=== PATIENT | female | born 1955 | race Caucasian/White ===

== ENCOUNTER 2017-03-18 10:31 | Outpatient (CLI) | payer BC ==
--- NOTE | 2017-03-18 14:22 | Ultrasound Report ---
LEFT BREAST ULTRASOUND: 03/18/2017 CLINICAL INDICATION: Swelling below the left TRAM flap reconstruction. TECHNIQUE: Real-time scanning was performed with litigation claim representative static images obtained. FINDINGS: Ultrasound of the palpable abnormalities identified by the patient was performed. At thes e sites, unremarkable subcutaneous fat is seen. No discrete solid or cystic mass is identified. IMPRESSION: NEGATIVE EXAMINATION. RECOMMENDATION: Routine annual screening unless otherwise clinically indicated. BI-RADS category 1, negative. JOB #: [id number] EXT JOB #:[id number]
--- NOTE | 2017-03-18 14:22 | Ultrasound Report ---
RIGHT BREAST ULTRASOUND: 03/18/2017 CLINICAL INDICATION: Palpable abnormalities, pain. TECHNIQUE: Real-time scanning was performed with teleservices representative static images obtained. FINDINGS: Ultrasound of the regions of palpable abnormality and pain identified by the patient was p erformed. Unremarkable parenchymal lobules are seen. No discrete solid or cystic lesion is identifi ed. No sonographically suspicious findings are appreciated. IMPRESSION: NEGATIVE EXAMINATION. RECOMMENDATION: Routine annual screening unless otherwise clinically indicated. BI-RADS category 1, negative. JOB #: [id number] EXT JOB #:[id number]
--- NOTE | 2017-03-18 18:12 | Mammography Report ---
DIGITAL BILATERAL DIAGNOSTIC MAMMOGRAM: 03/18/2017 CLINICAL INDICATION: Bulging below left TRAM flap reconstruction, palpable abnormalities and pain ri ght breast. TECHNIQUE: Bilateral CC, MLO, true lateral views. Markers were placed at the sites of palpable abno rmalities and pain in the right breast. COMPARISON: Outside films dated 07/24/2014, 08/08/2013, 07/23/2011. The right breast demonstrates heterogeneously dense fibroglandular parenchyma. A TRAM flap reconstru ction is noted on the left side. Coarse and punctate, typically benign calcifications are present. No mammographic abnormalities are appreciated at the sites of palpable abnormalities and pain identif ied in the right breast by the markers. No abnormal mammographic density is appreciated in the left TRAM flap reconstruction. Please also refer to bilateral breast ultrasound. IMPRESSION: BENIGN FINDINGS. RECOMMENDATION: ROUTINE ANNUAL SCREENING UNLESS OTHERWISE CLINICALLY INDICATED. BIRADS CATEGORY: 2, BENIGN FINDINGS. STANDARD QUALIFYING STATEMENTS 1. This examination was reviewed with the aid of Computed-Aided Detection (CAD). 2. A negative or benign imaging report should not delay biopsy if clinically suspicious findings are present. Consider surgical consultation if warranted. More than 5% of cancers are not identified b y imaging. 3. Dense breasts may obscure an underlying neoplasm. JOB #: [id number] EXT JOB #:[id number]
== END 2017-03-18 10:32 | disposition home or self-care (01) ==
LOC: DI 10:31
PROVIDERS: ATTEND Physician Assistant Medical
DX: N63 Unspecified lump in breast (principal); N64.4 Mastodynia; N65.0 Deformity of reconstructed breast; Z85.3 Personal history of malignant neoplasm of breast
CPT/HCPCS: 76642; 77066

== ENCOUNTER 2017-07-13 13:32 | Outpatient (CLI) | payer MEDICARE ==
[2017-07-13 20:40] LABS: CREATININE 0.7 mg/dL (0.4-1.0)
== END 2017-07-13 13:33 ==
LOC: LAB.WCP 13:32
PROVIDERS: ATTEND Physician Assistant Medical
DX: Z51.81 Encounter for therapeutic drug level monitoring (principal)
CPT/HCPCS: 36415; 82565

== ENCOUNTER 2017-07-27 09:56 | Outpatient (CLI) | payer MEDICARE ==
[2017-07-27] MEDS ORDERED: GADOBUTROL 7.5 MMOL/7.5 ML VIAL ONE (10:05)
[2017-07-27] MEDS ORDERED: GADOBUTROL 7.5 MMOL/7.5 ML VIAL IVP ONE (10:49)
--- NOTE | 2017-07-28 19:07 | MRI Report ---
MRI BILATERAL BREASTS WITH AND WITHOUT CONTRAST: 07/27/2017 CLINICAL INDICATION: A 62-year-old with personal history of left breast cancer status post mastectomy and TRAM flap reconstruction, persistent palpable abnormality in the lateral aspect of the right breast on clinical examination, negative mammogram and ultrasound March 2017. TECHNIQUE: Using a dedicated breast coil, axial precontrast STIR, T1, dynamic postcontrast axial 3-D images, axial 3-D high resolution images, and postcontrast diffusion weighted images were obtained. Gadavist 6 mL was administered intravenously. Post-processing with dynamic contrast enhancement analysis and multiplanar reformations was performed with Rockpack. FINDINGS RIGHT: The right breast demonstrates minimal fibroglandular parenchyma, with no significant enhancement. No focal mass or abnormal enhancement is appreciated. No axillary adenopathy is appreciated. LEFT: The appearance of the left TRAM flap reconstruction is unremarkable. There is no evidence of abnormal enhancement or mass lesion. No left axillary adenopathy is appreciated. IMPRESSION: Negative examination. Specifically, no MRI abnormality in the lateral right breast, at the site of clinical concern. RECOMMENDATION: Routine annual screening, next due in March 2018, unless otherwise clinically indicated. BIRADS category 1 - Negative. The patient has been instructed to obtain results from Dr. Gomez in 5 business days. COMMENT: Breast MRI is a highly sensitive examination, and has a cancer detection threshold down to approximately 5 mm; however, it only has moderate specificity. Although breast MRI has a high negative predictive value, appropriate clinical and mammographic followup are always necessary. MRI may miss less angiogenic tumor; therefore, it should not be used to avoid a biopsy which is otherwise clinically indicated. Normal-appearing lymph nodes may contain microscopic tumor. Due to prone positioning, the described location of findings may differ from other modalities. TD: 07/27/2017 20:29 J CARLOS
== END 2017-07-27 09:57 | disposition home or self-care (01) ==
LOC: DI 09:56
PROVIDERS: ATTEND Physician Assistant Medical
DX: N63.10 Unspecified lump in the right breast, unspecified quadrant (principal); Z85.3 Personal history of malignant neoplasm of breast
CPT/HCPCS: A9585; C8908; 77059

== ENCOUNTER 2017-10-13 11:53 | Outpatient (CLI) | payer MEDICARE ==
[~2017-10-13 11:53] MED LIST: GADOBUTROL 7.5 MMOL/7.5 ML VIAL ONE
[2017-10-13 12:24] LABS: CREATININE 0.8 mg/dL (0.4-1.0)
[2017-10-13] MEDS ORDERED: GADOBUTROL 7.5 MMOL/7.5 ML VIAL IVP ONE (13:20)
--- NOTE | 2017-10-13 18:51 | MRI Report ---
EXAM: MRI LUMBAR SPINE WITHOUT AND WITH CONTRAST EXAM DATE: 10/13/2017 01:26 PM. CLINICAL HISTORY: Lumbar spine pain, LBP, right lower extremity weak. COMPARISONS: None. TECHNIQUE: Multiplanar, multisequence T1-weighted and fluid-sensitive sequences of the lumbar spine f rom T12 to S1 before and after administration of intravenous contrast. Other: None. IV contrast: 6 mL Gadavist. FINDINGS: Spinal Cord: The conus terminates at L1. The conus medullaris and cauda equina are unremarkable. Alignment: 1. Mild 9 degree leftward convex curvature of the lumbar spine centered at L2. 2. Left lateral subluxation 6 mm L2 on L3. 3. Anterolisthesis 4 mm L5 on S1. 4. Anterolisthesis 5 mm L3 on L4. 5. Anterolisthesis 4 mm L2 on L3. Bone Marrow: Five [id number] lumbar vertebral bodies are assumed. Bilateral L4 and bilateral L5 pedicle fixation screws with posterior fixation hardware. Disk Levels/Facets: T12-L1: Unremarkable. L1-L2: Unremarkable. L2-L3: Severe disk degeneration. Severe right facet joint arthrosis. Central AP thecal sac diameter i s 5 mm. Diffuse moderate disk bulge. Mild left foraminal stenosis from disk bulge and facet hypertrop hy. Moderate right foraminal stenosis from disk degeneration, foraminal disk bulge and facet degenera tive hypertrophy. L3-L4: Central AP thecal sac diameter is 5 mm. Apophyseal joint apposition. Severe facet joint arthro sis. Ligamentum flavum thickening. Moderate left and mild right lateral recess stenosis from facet hy pertrophy. Diffuse disk bulge. Mild right foraminal stenosis. Moderate left foraminal stenosis and ef facement of the exiting left L3 nerve root from left lateral 5 mm disk extrusion. L4-L5: Interbody fusion with spacers. Negative for spinal canal stenosis or foraminal stenosis. Wide laminectomy defect. L5-S1: Severe facet joint arthrosis. Negative for foraminal stenosis. Negative for central spinal can al stenosis. Spinal Canal: No enhancing masses within the spinal canal. No epidural abscess. Musculature: Sacrum posterior paraspinal muscle atrophy. Other: The visualized retroperitoneum is unremarkable. IMPRESSION: 1. Anterior fusion, posterior fusion and wide laminectomy defect L4-L5. 2. Moderate central spinal canal stenosis, moderate left lateral recess stenosis and mild right later al recess stenosis L3-L4 from facet degenerative hypertrophy, ligamentum flavum thickening, 5 mm ante rolisthesis and posterior broad 3 mm disk protrusion. 3. Moderate to severe left L3-L4 foraminal stenosis from facet hypertrophy and far left lateral 5 mm disk extrusion with effacement exiting left L3 nerve root. 4. Moderate central spinal canal stenosis L2-L3 interspace from 4 mm anterolisthesis L2 on L3, diffus e disk bulge and severe right facet arthrosis. 5. Moderate right L2-L3 foraminal stenosis from foraminal disk bulge and facet degenerative hypertrop hy. Comment: The following findings are so common in adults without low back pain that while we report th eir presence, they must be interpreted with caution and in the context of the clinical situation. (Re jh Abraham et al, Spine 2001) Prevalence of findings in patients without low back pain: Disk degeneration (any evidence): 92% Disk desiccation/T2 signal loss: 83% Disk height loss: 56% Disk bulge: 64% Disk protrusion: 32% Annular tear/high intensity zone: 38% [facility] Referring Provider Line: [phone] SITE ID: [id number]
== END 2017-10-13 11:54 | disposition home or self-care (01) ==
LOC: LAB 11:53
PROVIDERS: ATTEND Orthopaedic Surgery
DX: M51.36 Other intervertebral disc degeneration, lumbar region (principal); M51.26 Other intervertebral disc displacement, lumbar region; M43.16 Spondylolisthesis, lumbar region
CPT/HCPCS: 36415; 72158; 82565; 84520; A9585

== ENCOUNTER 2017-10-20 13:30 | Outpatient (CLI) | payer MEDICARE, BC | END 2017-10-20 13:31 | disposition home or self-care (01) | LOC: LAB.WCP 13:30 | PROVIDERS: ATTEND Family Medicine | DX: N10 Acute pyelonephritis (principal) | CPT/HCPCS: 87086 ==

== ENCOUNTER 2017-11-09 08:00 | Outpatient (CLI) | payer BC, MEDICARE | END 2017-11-09 08:01 | disposition home or self-care (01) | LOC: LAB.R 08:00 | PROVIDERS: ATTEND Family Medicine | DX: Z79.891 Long term (current) use of opiate analgesic (principal) | CPT/HCPCS: 80307; 81599; G0480; 80346 ==

== ENCOUNTER 2018-06-11 10:45 | Outpatient (CLI) | payer MEDICARE ==
--- NOTE | 2018-06-13 06:23 | CT Report ---
Reason: HX LBP LUMBAR FUSION Procedure Date: 06/11/2018 Accession Number: [id number] / [id number] Procedure: CT - Lumbar Spine W/O CPT Code: FULL RESULT: EXAM: CT LUMBAR SPINE WITHOUT CONTRAST EXAM DATE: 06/11/2018 11:48 AM. CLINICAL HISTORY: Low back pain. History of lumbar fusion. COMPARISONS: LUMBAR SPINE MRI W/WO 10/13/2017 1:00 PM. TECHNIQUE: Thin-section axial images were acquired of the lumbar spine from T12 to S1 without contrast. Post-processing: Coronal and sagittal reformats. Other: None. In accordance with CT protocol optimization, one or more of the following dose reduction techniques were utilized for this exam: automated exposure control, adjustment of mA and/or KV based on patient size, or use of iterative reconstructive technique. FINDINGS: Since the prior MRI of the patient has undergone revision of the previously evident L4-L5 fusion. There is now posterior and interbody fusion spanning L2-L5. Paired pedicle screws and bridging fusion rods extend from L2-L4, and interbody spaces are present in each of the L2-L3, L3-L4, and L4-L5 disk spaces. The previously evident bilateral L5 pedicle screws have been removed. Each of the pedicle screws is in expected position without signs of neurologic impingement by the hardware. The bone surrounding each of the pedicle screws is solid without lucency to suggest motion. The metallic markers for the interbody spacer in the right side of the L3-L4 disk project very slightly beyond the expected anterior margin of the intervertebral disk (series 7 image 47). The other interbody spacer markers are in expected position within the intervertebral disks. There is mild gradual levoscoliosis centered at L2, unchanged. Axial images demonstrate the following: T10-T11: Left-sided ligamentum flavum ossification. The neural foramina are excluded from view on the sagittal images. T11-T12: Diffuse loss of disk height with endplate sclerosis eccentric to the right. The disk height loss results in moderate right foraminal stenosis. No bony central or left foraminal stenosis. The disk height loss has worsened since the earlier MRI and the foraminal stenosis is more pronounced. T12-L1: No bony central or foraminal stenosis. L1-L2: No bony central or foraminal stenosis. L2-L3: The central canal is decompressed by right hemilaminectomy. No bony central or foraminal stenosis. L3-L4: The central canal is decompressed by right hemilaminectomy. There is mild to moderate left foraminal stenosis due to disk bulge/osteophyte and facet hypertrophy. No bony central or right foraminal stenosis. L4-L5: The central canal is decompressed by laminectomy. Mild bilateral foraminal stenosis is due to residual disk bulge/osteophyte. No bony central stenosis. L5-S1: Moderate bilateral facet hypertrophy. No bony central or foraminal stenosis. IMPRESSION: 1. The patient is post revision of previously evident L4-L5 fusion. There is now posterior fusion spanning L2-L4 and interbody fusion at L2-L3, L3-L4, and L4-L5. Multilevel laminectomies have also been performed. 2. The fusion hardware is intact. Each of the pedicle screws is in expected position without neurologic impingement by the hardware. No lucency about any of the pedicle screws to suggest motion. 3. The right-sided interbody spacer in the L3-L4 disk space projects slightly beyond the expected anterior margin of the disk. The other interbody spacers elsewhere are reside within the expected margins of the disks. 4. Diffuse loss of disk height at T11-T12 is eccentric to the right and leads to moderate right foraminal stenosis. This is probably worsened since the earlier MRI. 5. Mild to moderate left foraminal stenosis at L3-L4. 6. Mild bilateral foraminal stenosis at L4-L5. [facility]
== END 2018-06-11 10:46 | disposition home or self-care (01) ==
LOC: DI 10:45
PROVIDERS: ATTEND Orthopaedic Surgery
DX: M51.34 Other intervertebral disc degeneration, thoracic region (principal); M48.04 Spinal stenosis, thoracic region; M47.9 Spondylosis, unspecified; M48.061 Spinal stenosis, lumbar region without neurogenic claudication; Z98.1 Arthrodesis status
CPT/HCPCS: 72131

== ENCOUNTER 2018-08-15 08:00 | Outpatient (CLI) | payer MEDICARE ==
[2018-08-15 19:19] LABS: BASOPHILS % (AUTO) 0.9 %; EOSINOPHILS # (AUTO) 0.1 10^3/uL (0.0-0.7); HGB - HEMOGLOBIN 14.1 g/dL (12.0-16.0); LYMPHOCYTES # (AUTO) 1.3 10^3/uL (1.5-3.5); LYMPHOCYTES % (AUTO) 24.4 %; MEAN CORPUSCULAR HEMOGLOBIN 33.9 pg (27.0-31.0); MEAN CORPUSCULAR HGB CONC 32.8 g/dL (32.0-36.0); MEAN CORPUSCULAR VOLUME 103.3 fL (81.0-99.0); MEAN PLATELET VOLUME 9.1 fL (7.9-10.8); MONOCYTES # (AUTO) 0.4 10^3/uL (0.0-1.0); MONOCYTES % (AUTO) 7.4 %; NEUTROPHILS # (AUTO) 3.5 10^3/uL (1.5-6.6); NEUTROPHILS % (AUTO) 66.3 %; PLT - PLATELET COUNT 337 10^3/uL (130-450); RED BLOOD COUNT 4.14 10^6/uL (4.20-5.40); RED CELL DISTRIBUTION WIDTH 13.5 % (12.0-15.0); WHITE BLOOD COUNT 5.3 x10^3/uL (4.8-10.8)
[2018-08-15 19:57] LABS: ALBUMIN 4.4 g/dL (3.2-5.5); ALBUMIN/GLOBULIN RATIO 1.5 (1.0-2.2); ALKALINE PHOSPHATASE 86 IU/L (42-121); ALT ALANINE AMINOTRANSFERASE 23 IU/L (10-60); AST ASPARTATE AMINOTRANSFERASE 31 IU/L (10-42); BILIRUBIN,TOTAL 0.6 mg/dL (0.2-1.0); BUN - BLOOD UREA NITROGEN 9 mg/dL (6-20); CALCIUM 9.7 mg/dL (8.5-10.3); CARBON DIOXIDE - CO2 25 mmol/L (21-32); CHLORIDE 101 mmol/L (101-111); CHOL/HDL RATIO 2.2 (<4.4); CHOLESTEROL 222 mg/dL; CREATININE 0.7 mg/dL (0.4-1.0); GFR - MDRD 84 (>89); GLUCOSE 94 mg/dL (70-100); HDL CHOLESTEROL 100 mg/dL; LDL CHOLESTEROL,CALCULATED 106 mg/dL; LDL/HDL RATIO 1.1 (<4.4); SODIUM 136 mmol/L (135-145); TOTAL PROTEIN 7.3 g/dL (6.7-8.2); VLDL CHOLESTEROL 16 mg/dL
== END 2018-08-15 23:59 | disposition home or self-care (01) ==
LOC: LAB.WCP 08:00
PROVIDERS: ATTEND Physician Assistant Medical
DX: I10 Essential (primary) hypertension (principal); R63.5 Abnormal weight gain
CPT/HCPCS: 36415; 80053; 80061; 83721; 84443; 85025

== ENCOUNTER 2018-10-18 08:00 | Outpatient (CLI) | payer MEDICARE | END 2018-10-18 23:59 | disposition home or self-care (01) | LOC: LAB.R 08:00 | PROVIDERS: ATTEND Physician Assistant Medical | DX: J34.0 Abscess, furuncle and carbuncle of nose (principal) | CPT/HCPCS: 87070; 87075; 87205 ==

== ENCOUNTER 2018-11-22 08:00 | Outpatient (CLI) | payer MEDICARE ==
[2018-11-22 19:15] LABS: BASOPHILS # (AUTO) 0.1 10^3/uL (0.0-0.1); BASOPHILS % (AUTO) 1.4 %; EOSINOPHILS # (AUTO) 0.2 10^3/uL (0.0-0.7); EOSINOPHILS % (AUTO) 3.4 %; HGB - HEMOGLOBIN 13.5 g/dL (12.0-16.0); LYMPHOCYTES # (AUTO) 1.7 10^3/uL (1.5-3.5); LYMPHOCYTES % (AUTO) 34.9 %; MEAN CORPUSCULAR HEMOGLOBIN 31.9 pg (27.0-31.0); MEAN CORPUSCULAR VOLUME 96.6 fL (81.0-99.0); MEAN PLATELET VOLUME 8.9 fL (7.9-10.8); MONOCYTES # (AUTO) 0.4 10^3/uL (0.0-1.0); MONOCYTES % (AUTO) 8.8 %; NEUTROPHILS # (AUTO) 2.5 10^3/uL (1.5-6.6); NEUTROPHILS % (AUTO) 51.5 %; PLT - PLATELET COUNT 272 10^3/uL (130-450); RED BLOOD COUNT 4.23 10^6/uL (4.20-5.40); RED CELL DISTRIBUTION WIDTH 13.3 % (12.0-15.0)
[2018-11-22 19:42] LABS: ALBUMIN 4.1 g/dL (3.2-5.5); ALBUMIN/GLOBULIN RATIO 1.4 (1.0-2.2); BILIRUBIN,TOTAL 0.4 mg/dL (0.2-1.0); CALCIUM 9.1 mg/dL (8.5-10.3); CREATININE 0.8 mg/dL (0.4-1.0)
== END 2018-11-22 08:01 | disposition home or self-care (01) ==
LOC: LAB.WCP 08:00
PROVIDERS: ATTEND Physician Assistant Medical
DX: R10.13 Epigastric pain (principal)
CPT/HCPCS: 36415; 80053; 83690; 85025

== ENCOUNTER 2018-12-02 10:41 | Outpatient (CLI) | payer MEDICARE ==
[2018-12-02] MEDS ORDERED: IOVERSOL 320 50 ML VIAL ONE (11:19)
[2018-12-02] MEDS ORDERED: IOVERSOL 320 100 ML VIAL IVP ONE ×2 (11:19→12:43)
[2018-12-02] MEDS ORDERED: IOVERSOL 320 50 ML VIAL PO ONE (12:43)
--- NOTE | 2018-12-03 20:20 | CT Report ---
Reason: EPIGASTRIC PAIN Procedure Date: 12/02/2018 Accession Number: [id number] / [id number] Procedure: CT - Abdomen/Pelvis W CPT Code: FULL RESULT: EXAM: CT ABDOMEN AND PELVIS EXAM DATE: 12/02/2018 12:42 PM. CLINICAL HISTORY: Abnormal weight loss COMPARISONS: None. TECHNIQUE: Routine helical CT imaging was performed through the abdomen and pelvis. IV contrast: Optiray-320 . Enteric contrast: Yes. Reconstructions: Coronal and sagittal. In accordance with CT protocol optimization, one or more of the following dose reduction techniques were utilized for this exam: automated exposure control, adjustment of mA and/or KV based on patient size, or use of iterative reconstructive technique. FINDINGS: Lung Bases: Mild emphysema suspected. Liver: Tiny right liver probable cysts. No suspicious masses. Gallbladder/Bile Ducts: Unremarkable. Spleen: Unremarkable. Pancreas: Unremarkable. Adrenal Glands: Unremarkable. Kidneys: Unremarkable. No suspicious masses or hydronephrosis. Peritoneal Cavity/Bowel: No bowel obstruction or inflammatory process seen. No free air or significant free fluid. No masses or adenopathy. The appendix is not seen but there is no evidence of appendicitis. Moderate stool burden. Pelvic Organs: Post hysterectomy with no adnexal masses seen. The bladder appears within normal limits. Vasculature: No aneurysms or other significant abnormality. Bones: No acute or aggressive appearing abnormality. Previous lumbar fusion and disk replacements. Other: None. IMPRESSION: 1. No acute inflammatory or obstructive process seen in the abdomen or pelvis. 2. Moderate stool burden. 3. Post-hysterectomy. [facility]
== END 2018-12-02 10:42 | disposition home or self-care (01) ==
LOC: DI 10:41
PROVIDERS: ATTEND Physician Assistant Medical
DX: R10.13 Epigastric pain (principal); Z90.710 Acquired absence of both cervix and uterus
CPT/HCPCS: 74177; Q9967

== ENCOUNTER 2018-12-12 09:43 | Outpatient (CLI) | payer MEDICARE ==
[2018-12-12] MEDS ORDERED: SINCALIDE 5 MCG VIAL ONE (11:32)
[2018-12-12] MEDS ORDERED: SODIUM CHLORIDE 0.9% IV ONE (14:27)
[2018-12-12] MEDS ORDERED: SINCALIDE IV ONE (14:27)
--- NOTE | 2018-12-12 16:32 | Nuclear Medicine Report ---
Reason: ABDOMINAL PAIN, RUQ Procedure Date: 12/12/2018 Accession Number: [id number] / [id number] Procedure: NM - Hepatobiliary HIDA w/ Rx CPT Code: FULL RESULT: EXAM: HEPATOBILIARY SCAN WITH CCK/KINEVAC ADMINISTRATION EXAM DATE: 12/12/2018 12:50 PM. CLINICAL HISTORY: ABDOMINAL PAIN, RUQ. COMPARISON: None. TECHNIQUE: Following the intravenous administration of 5.2 mCi of Tc99m Mebrofenin, a hepatobiliary scan was done centered on the liver and gallbladder in multiple sequential images and projections. Following the intravenous administration of 1.2 mcg of CCK/ Kinevac over the course of approximately 60 minutes, dynamic imaging was done and the gallbladder ejection fraction was calculated. FINDINGS: Normal clearance of blood pool activity indicating grossly normal hepatocellular function. Liver size and shape grossly normal. Appearance of tracer in the biliary tree as early as 5-10 minutes, within normal limits. Appearance of tracer in the gallbladder as early as 30 minutes, within normal limits, with good progression of filling throughout the remainder of the initial hour. Appearance of tracer in the small bowel as early as 20 minutes. Following CCK administration, gallbladder ejection fraction is calculated to be 99%, within the normal range (> 35%). No evidence of enterogastric bile reflux. IMPRESSION: 1. No scintigraphic evidence of acute cholecystitis. 2. Patent common bile duct. 3. Gallbladder ejection fraction is in the normal range. 4. No evidence of enterogastric bile reflux. [facility]
== END 2018-12-12 09:44 | disposition home or self-care (01) ==
LOC: DI 09:43
PROVIDERS: ATTEND Physician Assistant Medical
DX: R10.11 Right upper quadrant pain (principal)
CPT/HCPCS: 78227; J7040

== ENCOUNTER 2019-02-24 08:00 | Outpatient (CLI) | payer MEDICARE ==
[2019-02-25 14:47] LABS: HEPATITIS C ANTIBODY NON-REACTIVE (NON-REACTIVE)
== END 2019-02-24 23:59 | disposition home or self-care (01) ==
LOC: LAB.WCP 08:00
PROVIDERS: ATTEND Obstetrics & Gynecology
DX: Z20.5 Contact with and (suspected) exposure to viral hepatitis (principal)
CPT/HCPCS: 36415; 86803

== ENCOUNTER 2019-04-26 10:07 | Outpatient (CLI) | payer MEDICARE | END 2019-04-26 10:08 | disposition home or self-care (01) | LOC: DI 10:07 | PROVIDERS: ATTEND Physician Assistant Medical | DX: I48.92 Unspecified atrial flutter (principal) | CPT/HCPCS: 93306 ==

== ENCOUNTER 2020-08-15 14:33 | Outpatient (CLI) | payer MEDICARE ==
[2020-08-15 18:04] LABS: BASOPHILS # (AUTO) 0.1 10^3/uL (0.0-0.1); BASOPHILS % (AUTO) 0.7 %; EOSINOPHILS # (AUTO) 0.1 10^3/uL (0.0-0.7); EOSINOPHILS % (AUTO) 1.2 %; HGB - HEMOGLOBIN 14.3 g/dL (12.0-16.0); LYMPHOCYTES # (AUTO) 1.5 10^3/uL (1.5-3.5); LYMPHOCYTES % (AUTO) 18.5 %; MEAN CORPUSCULAR HEMOGLOBIN 33.8 pg (27.0-31.0); MEAN CORPUSCULAR HGB CONC 33.2 g/dL (32.0-36.0); MEAN CORPUSCULAR VOLUME 101.9 fL (81.0-99.0); MEAN PLATELET VOLUME 11.2 fL (7.9-10.8); MONOCYTES # (AUTO) 0.5 10^3/uL (0.0-1.0); MONOCYTES % (AUTO) 6.2 %; NEUTROPHILS # (AUTO) 5.9 10^3/uL (1.5-6.6); NEUTROPHILS % (AUTO) 72.9 %; PLT - PLATELET COUNT 349 10^3/uL (130-450); RED BLOOD COUNT 4.23 10^6/uL (4.20-5.40); RED CELL DISTRIBUTION WIDTH 12.4 % (12.0-15.0); WHITE BLOOD COUNT 8.1 x10^3/uL (4.8-10.8)
[2020-08-15 18:35] LABS: ALBUMIN 4.6 g/dL (3.2-5.5); ALBUMIN/GLOBULIN RATIO 1.3 (1.0-2.2); ALKALINE PHOSPHATASE 83 IU/L (42-121); ALT ALANINE AMINOTRANSFERASE 57 IU/L (10-60); AST ASPARTATE AMINOTRANSFERASE 46 IU/L (10-42); BILIRUBIN,TOTAL 0.8 mg/dL (0.2-1.0); BUN - BLOOD UREA NITROGEN 18 mg/dL (6-20); CALCIUM 9.5 mg/dL (8.5-10.3); CARBON DIOXIDE - CO2 23 mmol/L (21-32); CHLORIDE 96 mmol/L (101-111); CHOL/HDL RATIO 3.5 (<4.4); CHOLESTEROL 253 mg/dL; CREATININE 0.9 mg/dL (0.4-1.0); GLUCOSE 88 mg/dL (70-100); HDL CHOLESTEROL 73 mg/dL; LDL CHOLESTEROL,CALCULATED 154 mg/dL; LDL/HDL RATIO 2.1 (<4.4); SODIUM 133 mmol/L (135-145); TOTAL PROTEIN 8.1 g/dL (6.7-8.2); VLDL CHOLESTEROL 26 mg/dL
== END 2020-08-15 23:59 | disposition home or self-care (01) ==
LOC: LAB.WCP 14:33
PROVIDERS: ATTEND Physician Assistant Medical
DX: I10 Essential (primary) hypertension (principal)
CPT/HCPCS: 36415; 80053; 80061; 83721; 85025

== ENCOUNTER 2020-08-29 14:14 | Outpatient (CLI) | payer MEDICARE ==
--- NOTE | 2020-08-29 16:43 | DEXA Report ---
PROCEDURE: Dexa Spine and/or Hip INDICATIONS: POST MENOPAUSAL TECHNIQUE: Dual energy x-ray absorptiometry (DXA) was performed on a s0cket System. Regions measur ed are the AP Spine, femoral neck, and if needed forearm. COMPARISON: None. FINDINGS: Lumbar Spine: Bone Mineral Density 1.314 g/cm/cm,T score 0.9, normal density Left Femoral Neck: Bone Mineral Density 0.829 g/cm/cm, T score -1.4, osteopenia Left forearm: Bone Mineral Density 0.544 g/cm/cm, T score -2.2, osteopenia (T score greater or equal to -1.0: NORMAL) (T score from -1.1 to -2.4: OSTEOPENIA) (T score less than or equal to -2.5 to: OSTEOPOROSIS) Impression: OSTEOPENIA. Patient is at increased risk for fracture. Patients with diagnosis of osteoporosis or osteopenia should have regular bone mineral density assess ment. For those eligible for Medicare, routine testing is allowed once every 2 years. Testing frequ ency can be increased for patients who have rapidly progressing disease or for those who are receivin g medical therapy to restore bone mass. Reviewed by: Balwinder Caba MD on 08/29/2020 4:42 PM PST Approved by: Balwinder Caba MD on 08/29/2020 4:42 PM PST Station ID: [id number]
== END 2020-08-29 14:15 | disposition home or self-care (01) ==
LOC: DI 14:14
PROVIDERS: ATTEND Physician Assistant Medical
DX: M85.89 Other specified disorders of bone density and structure, multiple sites (principal); Z78.0 Asymptomatic menopausal state

== ENCOUNTER 2021-10-15 14:39 | Outpatient (CLI) | payer MEDICARE ==
--- NOTE | 2021-10-16 10:41 | Mammography Report ---
UNILATERAL RIGHT DIGITAL SCREENING MAMMOGRAM 3D/2D: 10/15/2021 CLINICAL: Routine screening. Personal history of left breast cancer. Comparison is made to exams dated: 07/27/2017 breast MRI, 03/18/2017 ultrasound, 03/18/2017 mammogram - [facility], and 07/24/2014 ultrasound - [facility]. There are sc attered fibroglandular elements in right breast. There is a possible 0.4 cm oval asymmetry in the right breast middle depth lateral region seen on the craniocaudal view only. No other significant masses or calcifications are seen in the breast. IMPRESSION: INCOMPLETE: NEEDS ADDITIONAL IMAGING EVALUATION The possible 0.4 cm oval asymmetry in the right breast is indeterminate. Additional views with possi ble ultrasound are recommended. This exam was interpreted at Station ID: [id number]. NOTE: For mammograms, a report in lay terms will be sent to the patient. Approximately 15% of breast malignancies will not be visualized mammographically. In the management of a palpable breast mass, a negative mammogram must not discourage biopsy of a clinically suspicious lesion. Electronically Signed By: Balwinder Caba M.D. aty/:10/16/2021 07:23:11 Entry: - 10/16/2021 07:31:45 ACR BI-RADS Category 0: Incomplete 3340F PARENCHYMAL PATTERN: (A) - The breast(s) demonstrate(s) scattered fibroglandular densities. BI-RADS CATEGORY: (0) - 0 Mammo and [place] [id number] Immediate follow-up LATERALITY: (R)
== END 2021-10-15 14:40 | disposition home or self-care (01) ==
LOC: DI.N 14:39
DX: Z12.31 Encounter for screening mammogram for malignant neoplasm of breast (principal); R92.8 Other abnormal and inconclusive findings on diagnostic imaging of breast

== ENCOUNTER 2022-12-28 15:46 | Emergency (ER) | payer MEDICARE ==
--- NOTE | 2022-12-28 16:17 | ED Physician Documentation ---
PD HPI Fall - Stated complaint Stated Complaint: LT LEG SWELL - Chief complaint Chief Complaint: Trauma Hd/Nk - History obtained from History obtained from: Patient - History of Present Illness Mechanism of injury: Other (she initialy struck back of head when leaning into tub to wash her hair and sat back up quickly and struck head on shelf. "saw stars" and felt lightheaded. Has had headache and episodinc dizzy/lightheaded since then, with 2-3 times of losing balance and falling with walking.) Fall distance: Standing position Where injury occurred: Home Timing - onset: How many days ago (few) Injury(ies) location: Head, Left Lower Extremity (struck left medina and twisted ankle when fell due to balance feeling off.) Associated symptoms: AMS. No: LOC, Nausea / vomiting Worsens with: Palpation Contributing factors: Anticoagulated. No: Intoxicated Similar symptoms before: Has not had sx before Recently seen: Not recently seen Review of Systems Eyes: denies: Loss of vision, Decreased vision Musculoskeletal: denies: Neck pain, Back pain Neurologic: reports: Altered mental status (dazed right after injury initial.), Headache, Other (intermittent off balance with bending/turning.). denies: Focal weakness, Numbness, LOC PD PAST MEDICAL HISTORY - Past Medical History Cardiovascular: Hypertension Respiratory: None Neuro: None Endocrine/Autoimmune: Type 2 diabetes - Allergies Allergies/Adverse Reactions: Allergies Allergy/AdvReac Type Severity Reaction Status Date / Time morphine Allergy Hives Verified 12/28/22 15:55 - Living Situation Living Arrangement: reports: At home PD ED PE NORMAL - Vitals Vital signs reviewed: Yes - General General: Alert and oriented X 3, No acute distress, Well developed/nourished - HEENT HEENT: PERRL, EOMI, Other (back of head with soft tissue tenderness. ) - Neck Neck: Supple, no meningeal sign, No bony TTP, No adenopathy, Other (no cervical collar. Does not have neck tenderness/pain. ) - Abdomen Abdomen: Soft, Non tender - Derm Derm: Normal color, Warm and dry - Extremities Extremities: Other (left lower leg with brusing and swelling anterolateral proximal tibia. Not tender in knee per se. No effusion. There is tenderness lateraly ankle as well. No calf tenderness nor swelling. ) - Neuro Neuro: Alert and oriented X 3, No motor deficit, No sensory deficit, Normal speech Eye Opening: Spontaneous Motor: Obeys Commands Verbal: Oriented GCS Score: 15 Results - Vitals Vitals: Oxygen O2 Source Room air - Labs Labs: Laboratory Tests 12/28/22 12/28/22 16:50 16:50 WBC 4.1 L RBC 3.86 L Hgb 12.5 Hct 37.3 MCV 96.6 MCH 32.4 H MCHC 33.5 RDW 12.9 Plt Count 253 MPV 9.3 Neut # (Auto) 2.4 Lymph # (Auto) 1.2 L [place] # (Auto) 0.4 Eos # (Auto) 0.0 Baso # (Auto) 0.0 Absolute Nucleated RBC 0.00 Nucleated RBC % 0.0 Sodium 134 L Potassium 3.3 L Chloride 98 L Carbon Dioxide 26 Anion Gap 10.0 BUN 9 Creatinine 0.8 Estimated GFR (MDRD) 71 L Glucose 106 H Calcium 8.7 Magnesium 1.9 Total Bilirubin 0.6 AST 63 H ALT 58 Alkaline Phosphatase 95 Total Protein 8.0 Albumin 4.0 Globulin 4.0 Albumin/Globulin Ratio 1.0 Lipase 47 - Rads (name of study) tib/fib left Relevant Findings:: Prelim report reviewed, EMP independent interpretation of test (no fractures. infrapatellar soft tissue swelling. ), See rad report head CT Relevant Findings:: Prelim report reviewed (no acute injury, no ICH.), See rad report cervical CT Relevant Findings:: Prelim report reviewed (no fractures. ), See rad report PD Medical Decision Making - ED course Complexity details: reviewed results (head and neck CTs are good, so no ICH.), considered differential (she initially states she struck back of head in bathroom and had some concussive symptoms (dazed, headache, feeling off balance) and since has had feeling of ataxia with turning, and fell 2-3 times since. Had landed left knee/ twisted ankle. Pain in those. ), d/w patient Departure - Departure Disposition: 01 Home, Self Care Clinical Impression: Head contusion, Anticoagulant long-term use, Contusion, lower leg, Ankle sprain, Mild concussion Condition: Stable Record reviewed to determine appropriate education?: Yes Instructions: ED Concussion, ED Sprain Ankle Follow-Up: Leonila Wise PA-C [Primary Care Provider] - Comments: Your CT scan of the head and neck are normal without any signs of fractures bleeding or swelling. Your symptoms sound like you may have some mild concussive symptoms or just jostling of the inner ears leading to some of the dizziness. I would anticipate this improving over several days. Your x-ray of the lower leg does not show any fractures. Obviously have the bruising around the knee and that we will take time for it to improve. The ankle component sounds more like a sprain and we can try to support that with an ankle brace when up and around for the next week or 2. Continue usual medications. Tylenol if needed for pains. Follow-up with your primary care if not improved well over the next several days to a week. Discharge Date/Time: 12/28/22 18:45
[2022-12-28] MEDS ORDERED: MECLIZINE 12.5 MG TABLET PO STA (16:37)
[2022-12-28] MEDS ORDERED: ACETAMINOPHEN 325 MG TABLET PO STA (16:37)
--- NOTE | 2022-12-28 16:49 | CT Report ---
PROCEDURE: HEAD WO INDICATIONS: fall , head injury TECHNIQUE: Noncontrast 4.5 mm thick angled axial sections acquired from the foramen magnum to the vertex. For r adiation dose reduction, the following was used: automated exposure control, adjustment of mA and/or kV according to patient size. COMPARISON: None. FINDINGS: Image quality: Excellent. CSF spaces: Basal cisterns are patent. No extra-axial fluid collections. Ventricles are normal in size and shape. Brain: No midline shift. No intracranial masses or hemorrhage. Garcia-white matter interface is norm al. Skull and face: Calvarium and visualized facial bones are intact, without suspicious lesions. Sinuses: Visualized sinuses and mastoids are clear. IMPRESSION: No CT evidence of acute intracranial process. No evidence of significant soft tissue injury or underlying fracture. Reviewed by: Dorothea Hills MD on 12/28/2022 3:48 PM [facility] Approved by: Dorothea Hills MD on 12/28/2022 3:48 PM [facility] Station ID: [id number]
--- NOTE | 2022-12-28 16:52 | CT Report ---
PROCEDURE: CERVICAL SPINE WO INDICATIONS: fall, neck pain TECHNIQUE: Noncontrast 3 mm thick sections acquired from the skull base to the T4 level. Sagittal and coronal r eformats were then constructed. For radiation dose reduction, the following was used: automated exp osure control, adjustment of mA and/or kV according to patient size. COMPARISON: None. FINDINGS: Image quality: Excellent. Bones: Intact craniocervical junction. Degenerative changes at the atlantodental interval including joint space loss and spur formation. Lateral masses of C1 are normally aligned on C2. There is grade 1 anterolisthesis C3 on 4 and C4 on 5 with prominent facet arthropathy at these levels. There are no cervical vertebral body fractures or posttraumatic subluxation. There is severe foraminal narrowing on the right at C4-5 due to facet arthropathy. Trace retrolisthes is C6-7 and moderate facet arthropathy. Visualized superior ribs are intact. Soft tissues: Prevertebral soft tissues are normal in thickness. No paravertebral hematomas. No ap ical pneumothoraces. IMPRESSION: 1. No cervical spine fracture or prostatic subluxation. 2. Multilevel degenerative changes and spondylolisthesis. Reviewed by: Dorothea Hills MD on 12/28/2022 3:51 PM [facility] Approved by: Dorothea Hills MD on 12/28/2022 3:51 PM [facility] Station ID: [id number]
--- NOTE | 2022-12-28 16:54 | XRAY Report ---
PROCEDURE: Tib/Fib LT INDICATIONS: fall onto left leg; infrapatellar and ankle pain TECHNIQUE: 2 views of the tibia and fibula were acquired. COMPARISON: None. FINDINGS: Bones: No fractures or dislocations. No suspicious bony lesions. Soft tissues: Mild infrapatellar/pretibial soft tissues thickening without underlying foreign body. IMPRESSION: 1. No fractures. 2. Mild infrapatellar soft tissue injury without underlying foreign body. Reviewed by: Dorothea Hills MD on 12/28/2022 3:53 PM [facility] Approved by: Dorothea Hills MD on 12/28/2022 3:53 PM [facility] Station ID: [id number]
[2022-12-28 16:55] LABS: HCT - HEMATOCRIT 37.3 % (37.0-47.0); HGB - HEMOGLOBIN 12.5 g/dL (12.0-16.0); LYMPHOCYTES # (AUTO) 1.2 10^3/uL (1.5-3.5); LYMPHOCYTES % (AUTO) 28.6 %; MEAN CORPUSCULAR HEMOGLOBIN 32.4 pg (27.0-31.0); MEAN CORPUSCULAR HGB CONC 33.5 g/dL (32.0-36.0); MEAN CORPUSCULAR VOLUME 96.6 fL (81.0-99.0); MEAN PLATELET VOLUME 9.3 fL (7.9-10.8); MONOCYTES # (AUTO) 0.4 10^3/uL (0.0-1.0); MONOCYTES % (AUTO) 10.4 %; NEUTROPHILS # (AUTO) 2.4 10^3/uL (1.5-6.6); NEUTROPHILS % (AUTO) 58.8 %; PLT - PLATELET COUNT 253 10^3/uL (130-450); RED BLOOD COUNT 3.86 10^6/uL (4.20-5.40); RED CELL DISTRIBUTION WIDTH 12.9 % (12.0-15.0); WHITE BLOOD COUNT 4.1 x10^3/uL (4.8-10.8)
--- OUTSIDE RECORDS SUMMARY | 2022-12-28 16:58 | EXTERNAL MEDICAL SUMMARY RPT | Continuity of Care Document ---
Author Name Unknown Address [address] [place] [id number] Phone Organization [facility] Address [address] [place] [id number] Phone Results/Labs test date author facility value unit interpretation Result panel 1 (unknown) (no date) (unknown) (unknown) (no value) (units unknown) (unknown) (unknown) (no date) (unknown) (unknown) No cells or organisms seen (units unknown) (unknown) (unknown) (no date) (unknown) (unknown) No cells or organisms seen (units unknown) (unknown) Result panel 2 (unknown) (no date) (unknown) (unknown) (no value) (units unknown) (unknown) (unknown) (no date) (unknown) (unknown) No cells or organisms seen (units unknown) (unknown) (unknown) (no date) (unknown) (unknown) No cells or organisms seen (units unknown) (unknown) (unknown) (no date) (unknown) (unknown) Test not performed (units unknown) (unknown) Result panel 3 (unknown) (no date) (unknown) (unknown) (no value) (units unknown) (unknown) (unknown) (no date) (unknown) (unknown) No cells or organisms seen (units unknown) (unknown) (unknown) (no date) (unknown) (unknown) No cells or organisms seen (units unknown) (unknown) (unknown) (no date) (unknown) (unknown) No growth. (units unknown) (unknown) (unknown) (no date) (unknown) (unknown) Test not performed (units unknown) (unknown) Result panel 4 (unknown) (no date) (unknown) (unknown) (no value) (units unknown) (unknown) (unknown) (no date) (unknown) (unknown) No cells or organisms seen (units unknown) (unknown) (unknown) (no date) (unknown) (unknown) No cells or organisms seen (units unknown) (unknown) (unknown) (no date) (unknown) (unknown) No growth. (units unknown) (unknown) (unknown) (no date) (unknown) (unknown) Test not performed (units unknown) (unknown)
[2022-12-28 17:08] LABS: BILIRUBIN,TOTAL 0.6 mg/dL (0.2-1.0); CALCIUM 8.7 mg/dL (8.5-10.3); CREATININE 0.8 mg/dL (0.4-1.0); MAGNESIUM 1.9 mg/dL (1.7-2.8); POTASSIUM 3.3 mmol/L (3.5-5.0)
[2022-12-28 18:46] VITALS: BP 142/81
== END 2022-12-28 18:45 | disposition home or self-care (01) ==
LOC: ED 15:46
DX: S06.0X0A Concussion without loss of consciousness, initial encounter (principal); S93.402A Sprain of unspecified ligament of left ankle, initial encounter; S00.93XA Contusion of unspecified part of head, initial encounter; S80.12XA Contusion of left lower leg, initial encounter; W22.8XXA Striking against or struck by other objects, initial encounter; Y93.89 Activity, other specified; Y92.89 Other specified places as the place of occurrence of the external cause; I10 Essential (primary) hypertension; E11.9 Type 2 diabetes mellitus without complications; Z79.01 Long term (current) use of anticoagulants
CPT/HCPCS: 36415; 70450; 72125; 73590; 80053; 83690; 83735; 85025; 99283; 99284; A9270

== ENCOUNTER 2023-01-05 02:45 | Outpatient (CLI) | payer MEDICARE | END 2023-01-05 02:46 | disposition EMS.NT | LOC: EMS 02:45 | DX: R42 Dizziness and giddiness (principal) ==